=== PATIENT | male | born 1945 | race Caucasian/White ===

== ENCOUNTER 2018-01-13 07:50 | Day surgery (SDC) ==
[2018-01-13] MEDS: TETRACAINE 0.5% UNIT-DOSE OP PRN ×2 (08:15→09:27)
[2018-01-13] MEDS: BETADINE OPTH PREP OP PRN ×2 (08:16→09:27)
[2018-01-13] MEDS: CYCLOGYL 2% OPTH OP PRN ×3 (08:17→08:27)
[2018-01-13] MEDS ORDERED: NIRAVAM ODT (SURGERY) PO PRN (08:32)
[2018-01-13] MEDS ORDERED: AK-DILATE 10% OPTH SOL OP PRN (08:32)
[2018-01-13] MEDS ORDERED: OMIDRIA 1-0.3% IN BSS BAG IR ONE (08:32)
[2018-01-13] MEDS ORDERED: ZOFRAN 4 MG/2 ML IVP ONE (08:32)
[2018-01-13] MEDS ORDERED: BRIMONIDINE TARTRATE 0.2% OPTH SOL OP PRN (08:32)
[2018-01-13] MEDS ORDERED: MOXIFLOXACIN 150 MCG/0.1 ML-BSS INJ (SURGERY) IO ONE (08:32)
[2018-01-13] MEDS: LIDOCAINE 1%/PHENYLEPHRINE 1.5% BSS (SURGERY) INTRAOCULA ONE ×2 (08:35→09:32)
[2018-01-13] MEDS ORDERED: TORADOL ONE (09:25)
[2018-01-13] MEDS ORDERED: SUBLIMAZE ONE (09:25)
[2018-01-13] MEDS ORDERED: VERSED ONE (09:25)
[2018-01-13] MEDS ORDERED: DIPRIVAN 20 ML VIAL IVP ONE (09:25)
[2018-01-13 13:11] VITALS: BP 116/56; TEMP 97.6
== END 2018-01-13 10:20 | disposition home or self-care (01) ==
LOC: SURG 07:50
PROVIDERS: ATTEND Ophthalmology
DX: H25.11 Age-related nuclear cataract, right eye (principal)

== ENCOUNTER 2018-01-27 06:43 | Day surgery (SDC) ==
[2018-01-27] MEDS: TETRACAINE 0.5% UNIT-DOSE OP PRN ×2 (07:16→08:11)
[2018-01-27] MEDS: BETADINE OPTH PREP OP PRN ×2 (07:17→08:38)
[2018-01-27] MEDS: CYCLOGYL 2% OPTH OP PRN ×3 (07:18→07:28)
[2018-01-27] MEDS ORDERED: ZOFRAN 4 MG/2 ML IVP ONE ×2 (07:20→07:26)
[2018-01-27] MEDS ORDERED: AK-DILATE 10% OPTH SOL OP PRN ×2 (07:20→07:26)
[2018-01-27] MEDS ORDERED: BSS WITH EPINEPHRINE OP ONE ×2 (07:20→07:26)
[2018-01-27] MEDS ORDERED: DEX-MOXI-KETOR OPTH INJ 1/0.5/0.4 MG/ML IO ONE ×2 (07:20→07:26)
[2018-01-27] MEDS ORDERED: NIRAVAM ODT (SURGERY) PO PRN ×2 (07:20→07:26)
[2018-01-27] MEDS ORDERED: BRIMONIDINE TARTRATE 0.2% OPTH SOL OP PRN ×2 (07:20→07:26)
[2018-01-27] MEDS ORDERED: LIDOCAINE 1% 20 ML MDV ID STA (07:26)
[2018-01-27] MEDS ORDERED: TETRACAINE 0.5% UNIT-DOSE OP PRN (07:26)
[2018-01-27] MEDS ORDERED: BETADINE OPTH PREP OP PRN (07:26)
[2018-01-27] MEDS ORDERED: CYCLOGYL 2% OPTH OP PRN (07:26)
[2018-01-27] MEDS ORDERED: SUBLIMAZE ONE (08:25)
[2018-01-27] MEDS ORDERED: VERSED ONE (08:25)
[2018-01-27] MEDS ORDERED: DIPRIVAN 20 ML VIAL IVP ONE (08:25)
[2018-01-27 13:17] VITALS: BP 123/67; TEMP 98.6
[2018-01-28] MEDS ORDERED: LIDOCAINE 1%/PHENYLEPHRINE 1.5% BSS (SURGERY) INTRAOCULA ONE (08:41)
== END 2018-01-27 09:30 | disposition home or self-care (01) ==
LOC: SURG 06:43
PROVIDERS: ATTEND Ophthalmology
DX: H25.12 Age-related nuclear cataract, left eye (principal)